=== PATIENT | female | born 1995 | race Caucasian/White ===

== ENCOUNTER 2018-08-22 08:04 | Day surgery (SDC) | payer BC ==
--- NOTE | 2018-08-21 06:53 | PREOPHP ---
DATE OF ADMISSION: 08/22/2018 HISTORY OF PRESENT ILLNESS: This is a 22-year-old female patient that was referred to me due to a hi story of very light periods, missing periods frequently and sometimes very heavy with pain. She is d eaf by and her partner also is deaf. They both have no problems communicating. The patient wo uld like to get and she was referred to me due to fibrous tissue that was covering the cervi x and with a small passage in a corner from , the septum of the vagina is possibly not completel y perforated as a complication. The cervix was not seen. She does have her menses that are ir regular and there is an area in the right corner of the patient that seems to have found a way out of her uterus and cervix to drain. It is a fibrotic tissue that was transversely from one side to the other side of the vagina that is covering the cervix almost completely with inability of looking at t he cervix. The uterus is bulky hypertrophic about 8 weeks size, it is painful. Adnexa are nonpalpab le. PAST MEDICAL HISTORY: Only for deafness at time. ALLERGIES: THE PATIENT IS NOT ALLERGIC TO ANYTHING. MEDICATIONS: She is on no medication. FAMILY HISTORY: Noncontributory. REVIEW OF SYSTEMS: She has no history of cardiovascular disease, lung disease, GI disease, neurologi fabian or orthopedic disease. SOCIAL HISTORY: No history of drugs. No history of smoking, drinking only socially. PHYSICAL EXAMINATION: GENERAL APPEARANCE: Good. VITAL SIGNS: Blood pressure is 120/90, pulse is 80, respirations 16, temperature is afebrile. She i s 5 feet 6 inch. She weighs 171. HEAD AND NECK: Normal. BREASTS: Soft, nontender, no masses. CHEST: Clear. HEART: Normal sinus rhythm. LUNGS: Clear. BACK: Normal. ABDOMEN: Soft, nontender, no masses. GENITALIA: With normal external genitalia. As I was describing in the history, going up the vaginal vault, the cervix was completely covered by fibrotic tissue that was transversely going from one rachel e to the other side of the vagina, thick enough to not visualize the cervix. There is an apparently small opening on the right side corner of this fibrotic tissue that is letting the menses flow on irr egular basis. DIAGNOSES: 1. Uterovaginal septum. 2. Cervical obliteration. 3. Hypertrophic uterus. PLAN: She is undergoing a septum excision. She has been advised of the possible risks and possible complications of the procedure with her alternatives and options. Written information was provided. She had no more questions and agreed to go ahead with the procedure with full understanding and no m ore questions. The patient's ultrasound revealed that the uterus was 6.7 cm without fibroids. The l ining of the uterus was 1.2 cm of endometrium. Both ovaries were normal. The patient agreed with th e impression that this is a small procedure and she will recover completely from it and this is what we have counseled her. FINAL DIAGNOSES: 1. Uterovaginal septum, congenital. 2. Excision of the uterovaginal septum. Dictated By: NOAH VORA/FRANCOISE Conf#: [id number] DID#: [id number]
[2018-08-22] VITALS (14 sets, daily range): BP systolic 113–161; BP diastolic 62–95; PULSE 65–86; RESP 11–21; Ht 167.6 cm; Wt 75.8 kg
[~2018-08-22] VITALS: Ht 167.6 cm; Wt 75.8 kg
[2018-08-22] MEDS ORDERED: LIDOCAINE 2% (SDV) 5 ML INJ ONE (08:52)
[2018-08-22] MEDS ORDERED: PROPOFOL 20 ML ONE (08:52)
[2018-08-22] MEDS ORDERED: FENTAnyl 50 MCG/ML VIAL ONE (08:52)
--- NOTE | 2018-08-22 08:57 | PREAC ---
Date/Time of Note Date/Time of Note DATE: 08/22/18 TIME: 08:55 Anesthesia Eval and Record Evaluation Time Pre-Procedure Interview DATE: 08/22/18 TIME: 08:55 Age 22 Sex female NPO: 8 hrs Preoperative diagnosis uterovaginal septum congenital Planned procedure excision of uterovaginal septum Past Medical History Past Medical History: Includes Neuro: Other (congenital deaf, we are using french sign language "in demand" computer to communicate today) Surgery & Anesthesia Issues No known issue Meds Anticoagulation: No Beta Vincent within 24 hr: No Reason Beta Vincent not given: Pt. not on B-Vincent Meds reviewed: Yes Allergies Allergies Reviewed: Yes Labs/Studies Labs Reviewed: Reviewed by anesthesiologist test: Negative Pre-procedure Exam Airway: Adequate mouth opening, Adequate thyromental dist Mallampati: Mallampati II Teeth: Normal Lung: Normal Heart: Normal ASA Physical Status ASA physical status: 1 Emergency: None Planned Anesthetic General/MAC: LMA Planned Pain Management Parenteral pain med, Local by surgeon Pre-operative Attestations Prior to commencing anesthesia and surgery, the patient was re-evaluated, there was verification of: *The patient's identity *The results of appropriate recent lab work and preoperative vital signs *The above evaluation not changing prior to induction *Anesthetic plan, risk benefits, alternative and complications discussed with patient/family; questions answered; patient/family understands, accepts and wishes to proceed. KATHLEEN DEGROOT Aug 22, 2018 08:57
[2018-08-22] MEDS ORDERED: MEPERIDINE 25 MG INJ IV PRN (09:30)
[2018-08-22] MEDS ORDERED: OXYCODONE/ACETAMINOPHEN (5/325) TAB PO PRN ×2 (09:30)
[2018-08-22] MEDS ORDERED: FENTAnyl 50 MCG/ML VIAL IV PRN ×3 (09:30)
[2018-08-22] MEDS ORDERED: ONDANSETRON 4 MG INJ IV PRN (09:30)
--- NOTE | 2018-08-22 09:31 | HPN ---
Date/Time of Note Date/Time of Note DATE: 08/22/18 TIME: 09:30 Interval H&P Admission Note Pt. seen H&P reviewed: No system changes NOAH BENSON MD Aug 22, 2018 09:31
--- NOTE | 2018-08-22 09:35 | SIPON ---
Date/Time of Note Date/Time of Note DATE: 08/22/18 TIME: 09:33 Operative Report Preoperative Diagnosis Uterovaginal septum Cervical blockage Hypertrophic uterus Postoperative Diagnosis congenital absence of the cervix Pin point vaginal connection to blind pouch rule out possible uterus No visualization of either tubes coming to this pouch Pouch size about 8 cm Operation/Procedure Performed Dilatation of vaginal connection to possible uterus. Hysteroscopy Surgeon see signature line seismic survey assistant None Anesthesia: general Estimated blood loss: minimal Transfusion Required none Specimen None Grafts/Implants none Complications none NOAH BENSON MD Aug 22, 2018 09:35
--- NOTE | 2018-08-22 09:37 | PD.PPDC ---
[employer] Discharge Instruction Condition [id number] Patient Condition: Bmeta5a Good Activity/Restrictions Tntoh4Lc Activity: Byemm2i Normal Activity May Shower [id number] Restrictions: Mlaru8b No Exercising No Lifting No Driving No Sexual Activity Nothing in the Vagina No [place] No Tampons, douche Follow-up Follow-up with Physician: 2, Week/Weeks Return to clinic for [id number] LINE WALKER Instructions: [id number] Fever greater than 101 Chills Worsening abdominal pain Excessive Vaginal Bleeding More than 2 pads per hour Unable to tolerate diet NOAH BENSON MD Aug 22, 2018 09:37
[2018-08-22] MEDS ORDERED: FAMOTIDINE 20 MG INJ ONE (09:48)
[2018-08-22] MEDS ORDERED: CEFAZOLIN 1 GM INJ ONE (09:48)
[2018-08-22] MEDS ORDERED: ONDANSETRON 4 MG INJ ONE (09:48)
[2018-08-22] MEDS ORDERED: DEXAMETHASONE 4 MG/ML 5 ML INJ ONE (09:48)
--- NOTE | 2018-08-22 12:05 | PAC ---
Date/Time of Note Date/Time of Note DATE: 08/22/18 TIME: 12:05 Post-Anesthesia Notes Post-Anesthesia Note Last documented vital signs Vital Signs Date Temp Pulse Resp B/P (MAP) Pulse Ox O2 O2 Flow FiO2 Time Delivery Rate 08/22/18 98.5 11:02 08/22/18 78 20 161/89 100 Room Air 10:58 (113) Activity: WNL Respiratory function: WNL Cardiovascular function: WNL Mental status: Baseline Pain reasonably controlled: Yes Hydration appropriate: Yes Nausea/Vomiting absent: Yes KATHLEEN DEGROOT Aug 22, 2018 12:05
--- NOTE | 2018-08-22 14:05 | OPR ---
DATE OF OPERATION: 08/22/2018 PROCEDURE: Dilatation of vaginal connection to possible uterus hysteroscopy. PREOPERATIVE DIAGNOSES: Uterovaginal septum cervical blockage hypertrophic uterus. POSTOPERATIVE DIAGNOSES: Congenital absence of the cervix, pinpoint vaginal connection to blind pouc h, rule out possible uterus. No visualization of either tube coming to this pouch. SURGEON: Noah Mccarty MD ANESTHESIA: General. ANESTHESIOLOGIST: Alonso Borges CRNA DESCRIPTION OF PROCEDURE: The patient was given general anesthesia and placed in the lithotomy posit ion. The perineal and vaginal area were prepped and draped and a Sanchez catheter was placed in the bl adder. The visualization of area of the vagina revealed that the vagina was blind pouch with only a pinpoint area that was around 4 o'clock and from that area, it seemed to be leaking some blood. The pinpoint area was held and a dilator was placed inside that connected to a deep hole of about 8 cm in length. The hysteroscope was applied after incising this entrance that was like pinpoint area that was dilated and the hysteroscope size 7 mm was placed all the way in. Visualization of this pouch di d not reveal the normal reilly of the uterus nor could I see any insertion of tubes. The possibility of connection to area was a possibility, but she seems to bleed from this area every month irre gularly off and on from this area monthly sometimes very scanty amount. The ultrasound had revealed uterus that was 8 cm in diameter. I do not see normal wall of the uterus through the hysteroscope. It seems that this is a pouch instead of the internal part of the uterus. I searched around. It is closed pouch about 8 cm with no signs of endometrium with no signs of entrances of tubes. This patie nt will need more evaluation and she will be referred to [facility] for further workup and possible laparos copy to assess what is going on with ovaries, tubes and uterus itself and possibly draining the uteru s through different route. This will have to be done in [facility]. This patient will be referred. The p rocedure was finished by removing all the instruments. The patient tolerated the procedure well. Th e Sanchez catheter was removed and the patient left the OR awake and stable. Sponge counts and instrum ent counts were correct. was explained through film examiner of the findings and the referral. Pictures were given. Dictated By: NOAH VORA/FRANCOISE Conf#: [id number] [facility]#: [id number]
[2018-08-22] MEDS ORDERED: CEFAZOLIN 2 GM/50 ML (PMX) 50 ML IVPB SCH (15:00)
[2018-08-22] MEDS ORDERED: LACTATED RINGER'S 1,000 ML IV SCH (15:00)
--- NOTE | 2018-08-22 15:33 | RADRPT ---
Vent Rate: 66 bpm RR Interval: 0 msec LA Interval: 178 msec QRS Duration: 102 msec QT Interval: 408 msec QTC Interval: 427 msec P-R-T [place]: 34 - 25 - 43 degrees Normal sinus rhythm Normal ECG Electronically Signed By: Samuel Cassidy
== END 2018-08-22 12:49 | disposition home or self-care (01) ==
LOC: SDS 08:04
PROVIDERS: ATTEND Obstetrics & Gynecology
DX: Q51.5 Agenesis and aplasia of cervix (principal)
CPT/HCPCS: 58558; 93005; J0690; J1100; J2405; J3010; Z7512; Z7610